=== PATIENT | female | born 1975 | race Caucasian/White ===

== ENCOUNTER 2016-04-24 12:19 | Emergency (ER) | payer OTHER ==
[~2016-04-24] VITALS: Ht 167.6 cm; Wt 109.8 kg
[~2016-04-24 12:19] MED LIST: ALPR0.25 PO; DIPH-530 PO; RANI150T12 PO; ZOLP10TA2 PO
[2016-04-24] MEDS ORDERED: MORPHINE SULFATE INJ 2 MG/ML DISP.SYRIN IV ONE (13:30)
[2016-04-24] MEDS ORDERED: ONDANSETRON HCL/PF 4 MG/2 ML VIAL IVP ONE (13:30)
[2016-04-24] MEDS ORDERED: IV NS 0.9% 1,000 ML BAG IV ONE (13:30)
[2016-04-24] MEDS ORDERED: IV NS 0.9% 1,000 ML ONE (13:42)
[2016-04-24] MEDS ORDERED: MORPHINE SULFATE INJ 4 MG/ML DISP.SYRIN ONE (13:42)
[2016-04-24] MEDS ORDERED: IV SET PRIMARY PUMP SET 1 EA INFUS.SET MC ONE (13:42)
[2016-04-24] MEDS ORDERED: ONDANSETRON HCL/PF 4 MG/2 ML VIAL ONE (13:42)
[2016-04-24 13:50] LABS: BASOPHILS # (AUTO) 0.1 /CMM (0.0-0.2); BASOPHILS % (AUTO) 0.8 % (0.0-2.0); DIFF TOTAL % 100 %; EOSINOPHILS % (AUTO) 0.4 % (0.0-6.0); HEMATOCRIT 35 % (33-45); LYMPHOCYTES # (AUTO) 1.4 /CMM (0.8-4.8); LYMPHOCYTES % (AUTO) 13.1 % (20.0-44.0); MEAN CORPUSCULAR HEMOGLOBIN 30 PG (26.0-33.0); MEAN CORPUSCULAR HGB CONC 35 g/dl (31.0-36.0); MEAN CORPUSCULAR VOLUME 86 fL (82-100); MONOCYTES # (AUTO) 0.6 /CMM (0.1-1.30); MONOCYTES % (AUTO) 5.3 % (2.0-12.0); NEUTROPHILS # (AUTO) 8.3 /CMM (1.8-8.9); NEUTROPHILS % (AUTO) 80.4 % (43.0-81.0); PLATELET COUNT (AUTO) 234 /CMM (150-450); WHITE BLOOD COUNT (AUTO) 10.4 K/uL (4.3-11.0)
[2016-04-24 13:54] LABS: ADD UA MICROSCOPIC NO; KETONES,URINE Negative (NEGATIVE); LEUKOCYTE ESTERASE ,URINE Negative (NEGATIVE); PH,URINE 6.5 (5.0-8.0)
[2016-04-24 13:55] LABS: CALCIUM, SERUM 8.9 mg/dL (8.5-10.1); CREATININE 0.7 mg/dL (0.6-1.3); POTASSIUM 3.9 mmol/L (3.5-5.1)
[2016-04-24 13:56] LABS: PREGNANCY TEST URINE QUAL NEGATIVE (NEGATIVE)
[2016-04-24 14:02] LABS: ALBUMIN 3.6 g/dL (3.4-5.0); BILIRUBIN,DIRECT 0.1 mg/dL (0.0-0.2); BILIRUBIN,TOTAL 0.5 mg/dL (0.2-1.0); INDIRECT BILIRUBIN 0.4 mg/dL (0.0-1.1)
[2016-04-24] MEDS ORDERED: IOHEXOL-300 100 ML VIAL IV ONE (14:06)
[2016-04-24] MEDS ORDERED: CT SWABBABLE VALVE TRANS SET 1 EA INFUS.SET MC ONE (14:06)
[2016-04-24] MEDS ORDERED: IV NS 0.9% 250 ML IV ONE (14:06)
[2016-04-24] MEDS ORDERED: HYDROCODONE/APAP 10/325MG 1 EA TABLET PO ONE (15:00)
[2016-04-24] MEDS ORDERED: HYDROCODONE/APAP 10/325MG 1 EA TABLET ONE (15:13)
[2016-04-24] MEDS ORDERED: SIMETHICONE 80 MG TAB.CHEW ONE (15:23)
[2016-04-24] MEDS ORDERED: SIMETHICONE 80 MG TAB.CHEW PO ONE (15:30)
[2016-04-24] MEDS ORDERED: HYDROMORPHONE 1 MG/1 ML DISP.SYRIN IV ONE ×2 (16:00→17:00)
[2016-04-24] MEDS ORDERED: HYDROMORPHONE 1 MG/1 ML DISP.SYRIN ONE ×2 (16:00→16:54)
[2016-04-24 17:00] VITALS: BP 138/89
== END 2016-04-24 17:15 | disposition home or self-care (01) ==
LOC: ER 12:26
DX: R10.31 Right lower quadrant pain (principal); B19.20 Unspecified viral hepatitis C without hepatic coma; K74.60 Unspecified cirrhosis of liver; Z85.9 Personal history of malignant neoplasm, unspecified
CPT/HCPCS: 36415; 74160; 76856; 80048; 80076; 81001; 83690; 84703; 85025; 96361; 96374; 96375; 96376; 99285; A4606; J1170 ×4; J2270; J2405; J7030; J7050; Q9967; Z7610; 81000-TC

== ENCOUNTER 2016-06-17 21:11 | Emergency (ER) | payer MEDICAID, OTHER ==
[~2016-06-17] VITALS: Ht 165.1 cm; Wt 109.8 kg
[2016-06-17 21:12] VITALS: BP 161/84
[2016-06-17] MEDS ORDERED: LORAZEPAM 1 MG TABLET ONE ×2 (21:22→22:05)
[2016-06-17] MEDS ORDERED: LORAZEPAM 0.5 MG TABLET PO ONE (21:30)
[2016-06-17] MEDS ORDERED: LORAZEPAM 1 MG TABLET PO ONE (22:30)
== END 2016-06-17 22:23 | disposition home or self-care (01) ==
LOC: ER 21:14
DX: F41.0 Panic disorder [episodic paroxysmal anxiety] (principal); B19.20 Unspecified viral hepatitis C without hepatic coma; K74.60 Unspecified cirrhosis of liver; Z85.41 Personal history of malignant neoplasm of cervix uteri; F10.20 Alcohol dependence, uncomplicated
CPT/HCPCS: 99283; A4606; Z7610